=== PATIENT | female | born 1985 | race African-American/Black ===

== ENCOUNTER 2016-11-01 07:58 | Emergency (ER) | payer SELFPAY ==
[~2016-11-01 07:58] MED LIST: ACETAMINOPHEN650 M3 PO; AMOXICILLIN; BENTYL20 MG PO; BENZACLIN GEL50 GM TOP; CIPRO PO; DICLOFENAC; HYDROCODON-ACE1 EAC9 PO; LORTAB 5-325 M1 EACH PO; LORTAB 5/500 TA1 TA2 PO; NAPROSYN500 MG PO; NO MEDICATIONS; PAIN RELIEVER500 M6; PEN-VEE K; PEN-VEE K PO; PHENERGAN25 MG PO; PRENATAL VITAMI1 TA3 PO; PRENATAL1 TA1 PO; PRILOSEC20 MG PO; TYLENOL/CODEINE1 TA1 PO; VEETIDS 500500 M1 PO; VICODIN 5/1 TAB 5/50 PO; VOLTAREN50 MG PO; VOLTAREN75 MG PO; ZOFRAN PO; ZOFRANODT SL; [UNRECOGNIZED DRUG - OTHER] PO
[2016-11-01 08:01] LABS: BASOPHIL% 0.4 % (0-2.5); EOSINOPHIL# 0.2 X10e3 (0-0.7); EOSINOPHIL% 3.9 % (0.0-7.0); HEMATOCRIT 38.2 % (35.0-45.0); LYMPHOCYTE# 1.8 X10e3 (1.0-3.5); LYMPHOCYTE% 37.8 % (17.0-45.0); MEAN CELL VOLUME 91.1 FL (83-96); MEAN CORPUSCULAR HEMOGLOBIN 30.9 PG (28-34); MEAN CORPUSCULAR HGB CONC 33.9 g/dL (30-36); MONOCYTE# 0.2 X10e3 (0-1.0); MONOCYTE% 5.2 % (3.0-12.0); NEUTROPHIL# 2.5 X10e3 (1.5-7.1); NEUTROPHIL% 52.7 % (40-75); PLATELET COUNT 245 X10e3 (140-420); RED CELL DISTRIBUTION WIDTH 13.1 % (11.0-15.5); WHITE BLOOD COUNT 4.7 X10e3 (4.0-10.5)
[2016-11-01 08:06] LABS: URINE SOURCE CLEAN CATCH
[2016-11-01 08:06] LABS: DIFF IND NO
[2016-11-01 08:09] LABS: URINE APPEARANCE CLEAR; URINE BILIRUBIN NEG (NEG); URINE BLOOD 2+ (NEG); URINE COLOR YELLOW; URINE GLUCOSE NEG (NORM); URINE KETONE NEG (NEG); URINE LEUKOCYTE ESTERASE NEG (NEG); URINE NITRATE NEG (NEG); URINE PROTEIN NEG (NEG); URINE SPECIFIC GRAVITY >=1.030 (1.003-1.035); URINE UROBILINOGEN 0.2 MG/DL (NORM)
[2016-11-01 08:11] LABS: MICRO INDICATED? YES
[2016-11-01 08:17] LABS: ALBUMIN SERUM 4.2 g/dL (3.5-5.0); ALKALINE PHOSPHATASE 70 U/L (32-92); ALT (SGPT) 13 U/L (10-40); AST (SGOT) 21 U/L (10-42); BILIRUBIN,TOTAL 0.5 mg/dL (0.2-2.0); BLOOD UREA NITROGEN 9 mg/dL (9-23); BUN/CREATININE RATIO 11.25; CARBON DIOXIDE 28 mmol/L (22-31); CHLORIDE 103 mmol/L (100-111); CREATININE SERUM 0.8 mg/dL (0.6-1.4); GLOM FILT RATE Estimated ABOVE60 mL/min (>60); GLUCOSE FASTING 93 mg/dL (70-110); POTASSIUM 3.6 mmol/L (3.5-5.1); PROTEIN TOTAL SERUM 7.5 g/dL (6.0-8.3); SODIUM 139 mmol/L (135-145)
[2016-11-01 08:22] LABS: CULTURE INDICATED? NO; URINE BACTERIA NEG (NEG); URINE WBC 0-2 /[HPF] (0-5)
[2016-11-01] MEDS ORDERED: FLAGYL PO (09:06)
[2016-11-05 20:55] LABS: CHLAMYDIA TRACH Detected (Not Detected); N GONOR Not Detected (Not Detected)
[2016-11-10] MEDS ORDERED: AZITHROMYCIN1 GM PO (18:59)
== END 2016-11-01 09:12 | disposition home or self-care (01) ==
LOC: SED 07:58
PROVIDERS: Emergency Medicine
DX: N76.0 Acute vaginitis (principal); N93.8 Other specified abnormal uterine and vaginal bleeding; Z98.51 Tubal ligation status
CPT/HCPCS: 36415; 80053; 81003; 84703; 85025; 87491; 87591; 87808; 87905; 99284

== ENCOUNTER 2017-02-19 16:07 | Emergency (ER) | payer OTHER ==
[~2017-02-19 16:07] MED LIST changes: +AZITHROMYCIN1 GM PO; +FLAGYL PO
== END 2017-02-19 16:45 | disposition home or self-care (01) ==
LOC: SED 16:07
DX: T16.1XXA Foreign body in right ear, initial encounter (principal); F17.210 Nicotine dependence, cigarettes, uncomplicated
CPT/HCPCS: 99282

== ENCOUNTER 2017-03-20 21:27 | Emergency (ER) | payer OTHER ==
[~2017-03-20] VITALS: Ht 160 cm; Wt 63.5 kg
== END 2017-03-20 23:45 | disposition home or self-care (01) ==
LOC: SED 21:27
DX: H60.92 Unspecified otitis externa, left ear (principal)
CPT/HCPCS: 99282